=== PATIENT | female | born 1985 | race Two or more races ===

== ENCOUNTER → 2019-12-03 | Outpatient (CLI) | payer BC | END | disposition home or self-care (01) | LOC: LABWHC1 10:02 | PROVIDERS: ATTEND Obstetrics & Gynecology | DX: O20.0 Threatened abortion (principal) | CPT/HCPCS: 36415; 84702 ==

== ENCOUNTER 2020-08-05 11:00 | Inpatient (IN) | payer BC ==
[2020-08-05] MEDS ORDERED: LIDOCAINE 0.5% (PF) 5 MG/ML (50 ML SDV) SQ PRN (11:22)
[2020-08-05] MEDS ORDERED: METHYLERGONOVINE 0.2 MG/ML 1 ML AMP IM PRN (11:22)
[2020-08-05] MEDS ORDERED: OXYTOCIN 10 UNIT/ML 1 ML VIAL IM PRN (11:22)
[2020-08-05] MEDS ORDERED: TERBUTALINE 1 MG/ML VIAL SQ PRN (11:22)
[2020-08-05] MEDS ORDERED: CARBOPROST TROMETHAMINE 250 MCG/ML 1 ML AMP IM PRN (11:22)
[2020-08-05] MEDS ORDERED: LACTATED RINGERS 1,000 ML IV SCH (11:30)
[2020-08-05] MEDS ORDERED: OXYTOCIN 30 UNITS/500 ML NS 30 UNIT in SALINE 1 500ML.BAG IV SCH (11:30)
--- NOTE | 2020-08-05 11:53 | P.HPOB ---
History of Present Illness H&P Date: 08/05/20 Chief Complaint: Regular uterine contractions This is a 35-year-old white female 3 para 2002 EDC 08/03/2020 at 40-2/7 weeks' gestation. Patient presents today with strong regular uterine contractions. Fetus is been active throughout the . She denies vagin al bleeding or fluid leakage. Past medical history is significant for TRICIA-1. Past surgical history colposcopy, ECC, wisdom teeth extracted. Current medications vitamins daily. ALLERGIES include Augmentin and penicillin, reaction is a rash. Family history is significant for hypertension, hypercholesterolemia, muscular dystrophy. Obstetric history significant for normal spontaneous vaginal deliveries 2. Social history patient is single, she is employed, she has never been a tobacco smoker and denies alcohol or drug use. history significant for blood type O+, rubella status immune. Group B strep cultures negative. HIV testing, hepatitis B surface antigen, urine culture all negative. Rubella status immune. On exam patient is 5 foot 7 inches, 154 pounds, blood pressure 139/89. General physical exam is within normal limits. Cervix is completely dilated, 0 station, vertex presentation, intact. Artificial amniorrhexis reveals clear fluid. heart rate is consistent with reactive NST. Impression: Advanced maternal age, 40-2/7 weeks' gestation, active labor, delivery pending. Plan: Close maternal and surveillance. Anticipate normal spontaneous vaginal delivery. Review of Systems Constitutional: Reports as per [facility] Medications and Allergies Home Medications Medication Instructions Recorded Confirmed Type Pnv No.95/Ferrous Fum/Folic AC 1 each PO DAILY 08/05/20 08/05/20 History [ Multivitamin Tablet] Allergies Allergy/AdvReac Type Severity Reaction Status Date / Time Penicillins Allergy Rash/Hives Verified 08/05/20 11:20 Exam Intake and Output 08/04/20 08/05/20 08/05/20 22:59 06:59 14:59 Other: Weight 69.853 kg See dictation under HPI please Assessment and Plan Assessment: Advanced maternal age, 40-2/7 weeks' gestation, active labor with delivery pending. All signs reassuring. Plan: Continue close maternal and surveillance. Anticipate normal spontaneous vaginal delivery. Time with Patient: Less than 30
[2020-08-05 11:57] LABS: Basophils % (A) 0 %; Eosinophils # (A) 0.1 k/uL (0-0.7); Eosinophils % (A) 1 %; HCT 39.8 % (34.0-46.0); HGB 13.6 gm/dL (11.4-16.0); Lymphocytes # (A) 1.5 k/uL (1.0-4.8); Lymphocytes % (A) 17 %; MCHC 34.2 g/dL (31.0-37.0); MCV 93.4 fL (80.0-100.0); Mean Platelet Volume 8.7; Monocytes # (A) 0.5 k/uL (0-1.0); Monocytes % (A) 5 %; Neutrophils # (A) 6.7 k/uL (1.3-7.7); Neutrophils % (A) 76 %; Platelet Count 231 k/uL (150-450); RBC 4.26 m/uL (3.80-5.40); RDW 12.7 % (11.5-15.5); WBC 8.8 k/uL (3.8-10.6)
[2020-08-05] MEDS ORDERED: LANOLIN CREAM 5 GM TUBE TOPICAL PRN (12:09)
[2020-08-05] MEDS ORDERED: IBUPROFEN 600 MG TAB PO PRN (12:09)
[2020-08-05] MEDS ORDERED: ZOLPIDEM 5 MG TAB PO PRN (12:09)
[2020-08-05] MEDS ORDERED: SIMETHICONE 80 MG CHEWABLE PO PRN (12:09)
[2020-08-05] MEDS ORDERED: HYDROCORTISONE 2.5% RECTAL CREAM 30 GM TUBE RECTAL PRN (12:09)
[2020-08-05] MEDS ORDERED: diphenhydrAMINE 50 MG CAP PO PRN (12:09)
[2020-08-05] MEDS ORDERED: BENZOCAINE/MENTHOL SPRAY 1 GM/SPRAY AEROSOL TOPICAL PRN (12:09)
[2020-08-05] MEDS ORDERED: diphenhydrAMINE 50 MG/ML 1 ML VIAL IVP PRN ×2 (12:09)
[2020-08-05] MEDS ORDERED: diphenhydrAMINE 25 MG CAP PO PRN (12:09)
[2020-08-05] MEDS ORDERED: ACETAMINOPHEN TAB 325 MG TAB PO PRN (12:09)
--- NOTE | 2020-08-05 12:09 | P.PROBDLV ---
Vaginal Delivery Note - . Vaginal Delivery Note: This is a 35-year-old white female 3 para 2002 EDC 08/03/2020 at 40-2/7 weeks' gestation. Patient presented with strong regular uterine contractions. Fetus is been active throughout the . She denied fluid leakage or vaginal bleeding. Please see dictated history and physical for details. Rupee strep cultures negative, rubella status immune, blood type O+. On presentation patient was 7 cm dilated. She was admitted, analgesic options offered and declined. She quickly became completely dilated at 1143 hours. Perineal body was prepped and draped in usual sterile fashion. With excellent maternal expulsive efforts 's head delivered occiput anterior and restituted accordingly. There was no nuchal cord noted. The left or anterior shoulder was delivered from underneath the pubic symphysis at which time the oropharynx, nasopharynx, and external nares were all bulb suctioned. Patient officially delivered a liveborn male at 1158 hours. Umbilical cord was doubly clamped and ligated, he was handed to waiting nurses for evaluation where scores of 9 and 9 at one and 5 minutes respectively were given. Placenta delivered spontaneously at 1202, it was inspected and noted to be intact with trivascular cord. Uterus is massaged. Careful inspection of the cervix, vagina, perineum, periurethral, and perirectal areas revealed no lacerations or defects. Infant weight 3580 g or 7 lbs. 14 oz. Patient is requesting circumcision for her son. Total estimated blood loss 200 mL's.
[2020-08-05] MEDS ORDERED: OXYTOCIN 20 UNITS/1000 ML NS 1,000 ML IV SCH (12:15)
[2020-08-05] MEDS: SENNOSIDES-DOCUSATE SODIUM 1 EACH TAB PO SCH (22:06)
--- NOTE | 2020-08-06 07:21 | P.DS ---
Providers Date of admission: 08/05/20 11:11 Expected date of discharge: 08/06/20 Attending physician: Telma Urrutia Primary care physician: Stated None Hospital Course: This is a 35-year-old white female 3 para 2002 EDC 08/03/2020 who presented at 40-2/7 weeks in active spontaneous labor. Group B strep cultures negative. Blood type O positive. Rubella status immune. unremarkable. Please see dictated history and physical for details. The patient has done well. She is voiding, and bleeding, passing flatus. Vital signs are stable and she is afebrile. Vaginal bleeding is minimal. Pain is minimal. Breast-feeding is going well. Patient is judged to be in excellent condition for discharge home. Circumcision on her son has been performed. Patient is being discharged home in excellent condition. She will follow-up with me in the office in 6 weeks. I have reminded her no intercourse, tampons or douching. She will use [id number] Advil or Aleve, or Motrin as needed for pain. She will call with any fevers shakes or chills, foul smelling or copious lochia, with the passage of large blood clots, with any pain not alleviated by [id number] products, or indeed with any concerns. A pr escription for breast pump has been provided. We have discussed options for contraception and we will discuss this further in the office. Assessment: Doing well day #1 Patient Condition at Discharge: Good Plan - Discharge Summary Discharge Rx Participant: No New Discharge Prescriptions: No Action Pnv No.95/Ferrous Fum/Folic AC [ Multivitamin Tablet] 1 each PO DAILY Discharge Medication List Pnv No.95/Ferrous Fum/Folic AC [ Multivitamin Tablet] 1 each PO DAILY 08/05/20 [History] Follow up Appointment(s)/Referral(s): Telma Urrutia MD [STAFF PHYSICIAN] - 6 Weeks Discharge Disposition: HOME SELF-CARE
[2020-08-06] MEDS: SENNOSIDES-DOCUSATE SODIUM 1 EACH TAB PO SCH (07:56)
[2020-08-06 08:18] LABS: Basophils % (A) 0 %; Eosinophils # (A) 0.1 k/uL (0-0.7); Eosinophils % (A) 1 %; HCT 37.1 % (34.0-46.0); HGB 12.5 gm/dL (11.4-16.0); Lymphocytes # (A) 1.5 k/uL (1.0-4.8); Lymphocytes % (A) 16 %; MCH 31.7 pg (25.0-35.0); MCHC 33.6 g/dL (31.0-37.0); MCV 94.4 fL (80.0-100.0); Mean Platelet Volume 8.7; Monocytes # (A) 0.4 k/uL (0-1.0); Monocytes % (A) 4 %; Neutrophils # (A) 7.6 k/uL (1.3-7.7); Neutrophils % (A) 79 %; Platelet Count 198 k/uL (150-450); RBC 3.93 m/uL (3.80-5.40); RDW 12.8 % (11.5-15.5); WBC 9.6 k/uL (3.8-10.6)
[2020-08-06 08:58] VITALS: BP 117/78; PULSE 76; RESP 18; TEMP 98.7
== END 2020-08-06 13:00 | disposition home or self-care (01) | DRG 807 ==
LOC: FBPOP 11:00 → 4FBP 11:11
PROVIDERS: ADMIT Obstetrics & Gynecology; ATTEND Obstetrics & Gynecology
PROC: 10E0XZZ Delivery of Products of Conception, External Approach (ICD-10-PCS; principal; 2020-08-05)
DX: O80 Encounter for full-term uncomplicated delivery (principal); Z37.0 Single live birth; Z3A.40 40 weeks gestation of pregnancy; Z87.410 Personal history of cervical dysplasia; Z79.899 Other long term (current) drug therapy; Z88.0 Allergy status to penicillin; Z82.49 Family history of ischemic heart disease and other diseases of the circulatory system; Z83.49 Family history of other endocrine, nutritional and metabolic diseases; Z82.0 Family history of epilepsy and other diseases of the nervous system
CPT/HCPCS: 85025; 86850; 86900; 86901